=== PATIENT | female | born 1980 | race Caucasian/White ===

== ENCOUNTER 2021-07-24 09:04 | Emergency (ER) | payer OTHER ==
[~2021-07-24] VITALS: Ht 157.5 cm; Wt 147.6 kg
[2021-07-24] MEDS ORDERED: ONDANSETRON ODT8 MG PO (11:03)
== END 2021-07-24 11:14 | disposition home or self-care (01) ==
LOC: ED 09:04
DX: U07.1 COVID-19 (principal); Z88.8 Allergy status to other drugs, medicaments and biological substances
CPT/HCPCS: 99284; A9270; C9803; U0003